=== PATIENT | female | born 1980 | race Caucasian/White ===

== ENCOUNTER → 2021-12-14 15:54 | Outpatient (BNVA) | payer MEDICAID, SELFPAY | PROVIDERS: PCP Family Medicine; Visit Provider Anesthesiology | DX: M47.812 Spondylosis without myelopathy or radiculopathy, cervical region (principal); G44.209 Tension-type headache, unspecified, not intractable; I63.81 Other cerebral infarction due to occlusion or stenosis of small artery | CPT/HCPCS: 99202 ==

== ENCOUNTER → 2022-02-15 16:11 | Outpatient (BNVA) | payer MEDICAID, SELFPAY | PROVIDERS: PCP Family Medicine; Visit Provider Anesthesiology | DX: M47.812 Spondylosis without myelopathy or radiculopathy, cervical region (principal); G44.209 Tension-type headache, unspecified, not intractable; I63.81 Other cerebral infarction due to occlusion or stenosis of small artery; K75.9 Inflammatory liver disease, unspecified | CPT/HCPCS: 99212 ==

== ENCOUNTER → 2023-09-02 13:53 | Outpatient (BNV) | payer OTHER, SELFPAY | PROVIDERS: Visit Provider Clinical Nurse Specialist Psychiatric/Mental Health | DX: F33.2 Major depressive disorder, recurrent severe without psychotic features (principal); F41.1 Generalized anxiety disorder | CPT/HCPCS: 99205 ==

== ENCOUNTER 2023-11-09 12:45 | Outpatient (REF) | payer MEDICAID, SELFPAY ==
--- NOTE | 2023-11-09 13:05 | EEG_ITS ---
FINDINGS: Waking background activity consists of a [id number] voltage 13 to 14 hertz posterior frequency intermixed with low voltage fast frequencies and muscle artifacts anteriorly. Photic stimulation is without activation. Hyperventilation was omitted. No sleep stages are identified. No focal, lateralizing, or paroxysmal discharges are seen. IMPRESSION: This waking EEG is within normal limits. MD ANGIE Muñoz/TEX / [id number]
== END 2023-11-09 12:46 | disposition home or self-care (01) ==
LOC: HO.NEURO 12:45
PROVIDERS: PCP Pediatrics; Visit Provider Psychiatry & Neurology Psychiatry
DX: R56.9 Unspecified convulsions (principal)
CPT/HCPCS: 95816

== ENCOUNTER 2023-12-16 10:00 | Outpatient (RCR) | payer MEDICAID, SELFPAY ==
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
--- NOTE | 2023-12-18 23:11 | P.PNPS_ITS ---
TMS Daily Progress Note Daily TMS Progress Note Date of Service: 12/05/23 Week #: 1 Treatment #(03-29): 1 PHQ-9 Pre-Treatment (03-26): 25 PHQ-9 Most Recent (03-26): 25 Reviewed: TMS Mapping/Re-mapping completed Verification: I have reviewed the TMS Solar Field Service Technician Note and agree with the contents. The patient remains a candidate to continue TMS treatment per protocol. Assessment and Plan (1) Major depressive disorder, recurrent, severe w/o psychotic behavior: Status: Acute Plan Patient's history extensively reviewed MRI reviewed neurology notes reviewed and note from neurologist stating they did not see any contraindication TMS. Patient has small noted thalamic venous malformation neurology felt no contraindication no increased intracranial pressure with TMS patient has a history of seizure on Wellbutrin current EEG was not showing any evidence of seizure disorder seizure activity. Discussed with patient that she was probably at somewhat higher risk of having a seizure during treatment but probably not markedly elevated. Given that her vascular malformation makes it contraindicated for ECT small risk with TMS seemed to be a reasonable patient was able to give informed consent. Initial mapping completed patient advised to what symptoms to let us know if she experiences during treatment and to continue gabapentin as prescribed
--- NOTE | 2023-12-18 23:20 | HO.TMSDAILY2 ---
TMS Daily Progress Note Daily TMS Progress Note Date of Service: 12/06/23 Week #: 1 Treatment #(03-29): 2 PHQ-9 Pre-Treatment (03-26): 25 PHQ-9 Most Recent (03-26): 25 Reviewed: TMS Tech Note Reviewed Verification: I have reviewed the TMS Lettuce Cutter Note and agree with the contents. The patient remains a candidate to continue TMS treatment per protocol. Assessment and Plan (1) Major depressive disorder, recurrent, severe w/o psychotic behavior: Status: Acute Plan Continue plan of care patient tolerating treatment
--- NOTE | 2023-12-18 23:24 | P.PNPS_ITS ---
TMS Daily Progress Note Daily TMS Progress Note Date of Service: 12/07/23 Week #: 3 Treatment #(03-29): 3 PHQ-9 Pre-Treatment (03-26): 25 PHQ-9 Most Recent (03-26): 25 Reviewed: TMS Tech Note Reviewed Verification: I have reviewed the TMS Recorder Helper Gravity Prospecting Note and agree with the contents. The patient remains a candidate to continue TMS treatment per protocol. Assessment and Plan (1) Major depressive disorder, recurrent, severe w/o psychotic behavior: Status: Acute Plan Continue plan of care MT gradual increase slowly given patient's risk factors
--- NOTE | 2023-12-18 23:26 | P.PNPS_ITS ---
TMS Daily Progress Note Daily TMS Progress Note Date of Service: 12/08/23 Week #: 1 Treatment #(03-29): 4 PHQ-9 Pre-Treatment (03-26): 25 PHQ-9 Most Recent (03-26): 25 Reviewed: TMS Tech Note Reviewed Verification: I have reviewed the TMS Flexographic Printing Press Operator Note and agree with the contents. The patient remains a candidate to continue TMS treatment per protocol. Assessment and Plan (1) Major depressive disorder, recurrent, severe w/o psychotic behavior: Status: Acute Plan Patient generally tolerating treatment gradual increase in MT slowly monitor for side effects
--- NOTE | 2023-12-18 23:29 | P.PNPS_ITS ---
TMS Daily Progress Note Daily TMS Progress Note Date of Service: 12/09/23 Week #: 1 Treatment #(03-29): 5 PHQ-9 Pre-Treatment (03-26): 25 PHQ-9 Most Recent (03-26): 25 Reviewed: TMS Tech Note Reviewed Verification: I have reviewed the TMS Automation Controls Engineer Note and agree with the contents. The patient remains a candidate to continue TMS treatment per protocol. Assessment and Plan (1) Major depressive disorder, recurrent, severe w/o psychotic behavior: Status: Acute Plan Patient generally tolerating treatment gradual increase in MT slowly monitor for side effects
--- NOTE | 2023-12-18 23:33 | P.PNPS_ITS ---
TMS Daily Progress Note Daily TMS Progress Note Date of Service: 12/13/23 Week #: 2 Treatment #(03-29): 6 PHQ-9 Pre-Treatment (03-26): 25 PHQ-9 Most Recent (03-26): 19 Reviewed: TMS Tech Note Reviewed Verification: I have reviewed the TMS Career Transition Specialist Note and agree with the contents. The patient remains a candidate to continue TMS treatment per protocol. Assessment and Plan (1) Major depressive disorder, recurrent, severe w/o psychotic behavior: Status: Acute Plan Patient is showing some improvement on PHQ-9 so far tolerating treatment
--- NOTE | 2023-12-18 23:37 | HO.TMSDAILY2 ---
TMS Daily Progress Note Daily TMS Progress Note Date of Service: 12/14/23 Week #: 2 Treatment #(03-29): 7 PHQ-9 Pre-Treatment (03-26): 25 PHQ-9 Most Recent (03-26): 19 Reviewed: TMS Tech Note Reviewed Verification: I have reviewed the TMS Emergency Medcl Emt Note and agree with the contents. The patient remains a candidate to continue TMS treatment per protocol. Assessment and Plan (1) Major depressive disorder, recurrent, severe w/o psychotic behavior: Status: Acute Plan Continue plan of care patient tolerating treatment
--- NOTE | 2023-12-18 23:40 | P.PNPS_ITS ---
TMS Daily Progress Note Daily TMS Progress Note Date of Service: 12/15/23 Week #: 2 Treatment #(03-29): 8 PHQ-9 Pre-Treatment (03-26): 25 PHQ-9 Most Recent (03-26): 19 Reviewed: TMS Tech Note Reviewed Verification: I have reviewed the TMS Payroll Accounting Specialist Note and agree with the contents. The patient remains a candidate to continue TMS treatment per protocol. Assessment and Plan (1) Major depressive disorder, recurrent, severe w/o psychotic behavior: Status: Acute Plan Continue plan of care
--- NOTE | 2023-12-18 23:42 | P.PNPS_ITS ---
TMS Daily Progress Note Daily TMS Progress Note Date of Service: 12/16/23 Week #: 2 Treatment #(03-29): 9 PHQ-9 Pre-Treatment (03-26): 25 PHQ-9 Most Recent (03-26): 19 Reviewed: TMS Tech Note Reviewed Verification: I have reviewed the TMS Optical Systems Engineer Note and agree with the contents. The patient remains a candidate to continue TMS treatment per protocol. Assessment and Plan (1) Major depressive disorder, recurrent, severe w/o psychotic behavior: Status: Acute Plan Continue plan of care
== END 2023-12-23 16:32 | disposition home or self-care (01) ==
LOC: HO.PTMS 10:00
PROVIDERS: Visit Provider Clinical Nurse Specialist Psychiatric/Mental Health
DX: F33.2 Major depressive disorder, recurrent severe without psychotic features (principal); F41.1 Generalized anxiety disorder
CPT/HCPCS: 90867; 90868